=== PATIENT | male | born 1980 | race Caucasian/White ===

== ENCOUNTER 2017-05-22 10:16 | Emergency (ER) | payer MEDICAID ==
[~2017-05-22] VITALS: Ht 172.7 cm; Wt 77.0 kg
[2017-05-22 13:45] LABS: BASOPHILS % 0.5 % (0.0-2.0); EOSINOPHILS % 2.3 % (0.0-5.0); HEMATOCRIT. 43.2 % (42.0-52.0); HEMOGLOBIN. 14.7 g/dL (14.0-18.0); LYMPHOCYTES % 28.7 % (20.0-50.0); MEAN CORPUSCULAR HEMOGLOBIN 31.6 pg (28.0-32.0); MEAN CORPUSCULAR VOLUME 92.9 fL (80.0-94.0); MEAN PLATELET VOLUME 7.7 fl (7.4-10.4); MONOCYTES % 6.5 % (2.0-8.0); PLATELET 281 x1000/uL (130-400); RED BLOOD CELL COUNT 4.65 mill/uL (4.7-6.1)
[2017-05-22] MEDS ORDERED: KETOROLAC 30MG/ML VIAL IV ONE (13:45)
[2017-05-22 13:53] LABS: PARTIAL THROMBOPLASTIN TIME 27.3 sec (23.4-31.0); PROTHROMBIN TIME 10.4 sec (9.4-11.6)
[2017-05-22 13:57] LABS: CARBON DIOXIDE 28 mEq/L (21-32); CHLORIDE 107 mEq/L (98-107)
[2017-05-22 17:05] VITALS: BP 114/61
== END 2017-05-22 17:08 | disposition home or self-care (01) ==
LOC: ER 10:57
DX: S09.90XA Unspecified injury of head, initial encounter (principal); M25.511 Pain in right shoulder; F12.10 Cannabis abuse, uncomplicated; F17.200 Nicotine dependence, unspecified, uncomplicated; X58.XXXA Exposure to other specified factors, initial encounter; Y93.89 Activity, other specified; Y92.89 Other specified places as the place of occurrence of the external cause; Y99.8 Other external cause status
CPT/HCPCS: 36415; 70450; 70486; 71010; 72125; 73030; 80053; 82962; 85025; 85610; 85730; 86850; 86900; 86901; 96374; 99285; J1885; Z7610

== ENCOUNTER 2022-05-25 09:21 | Emergency (ER) | payer MEDICAID, OTHER ==
[~2022-05-25] VITALS: Ht 170.2 cm; Wt 85.0 kg
[2022-05-25 09:37] VITALS: BP 119/78
[2022-05-25] MEDS ORDERED: P20 MT (12:15)
[2022-05-25] MEDS ORDERED: ALBU6.7H3 INH (12:15)
[2022-05-25] MEDS ORDERED: SULF1TAB48 MT (12:17)
== END 2022-05-25 12:37 | disposition home or self-care (01) ==
LOC: ER 09:28
DX: J45.909 Unspecified asthma, uncomplicated (principal); R20.2 Paresthesia of skin
CPT/HCPCS: 99281